=== PATIENT | female | born 1965 | race Caucasian/White ===

== ENCOUNTER 2020-04-21 22:23 | Emergency (ER) | payer BC ==
--- NOTE | 2020-04-21 23:08 | EDM.PDOC ---
ED HPI GENERAL MEDICAL PROBLEM - General Chief Complaint: Lower Extremity Injury/Pain Stated Complaint: RIGHT LEG IN PAIN,RED,SWOLLEN, HOT, SORE Time Seen by Provider: 04/21/20 23:00 Source of Information: Reports: Patient, RN History Limitations: Reports: No Limitations - History of Present Illness INITIAL COMMENTS - FREE TEXT/NARRATIVE: 54-year-old female presents to the ER with complaints of right leg pain. Patient reports she noticed a bump on her right cohen 2 days ago. She states that she thinks it originated from her shingles and pneumonia shots she had a week ago. she denies any known injury or fall or trauma to her right leg. States area is swollen, warm and painful to touch. Denies any fevers or chills, chest pain, palpitation, or any leg swelling. she has not done anything to relieve her symptoms. States she is in [place] for the weekend. Right Lower Leg Pain Score (Numeric/FACES): 6 - Related Data Allergies Allergy/AdvReac Type Severity Reaction Status Date / Time Unable to Assess Allergy Unverified 04/21/20 22:37 Past Medical History - Past Surgical History GI Surgical History: Reports: Hernia Repair/Other Female Surgical History: Reports: Section Social & Family History - Tobacco Use Smoking Status *Q: Current Every Day Smoker Years of Tobacco use: 39 Packs/Tins Daily: 1 Second Hand Smoke Exposure: Yes - Caffeine Use Caffeine Use: Reports: Coffee - Recreational Drug Use Recreational Drug Use: No Review of Systems - Review of Systems Review Of Systems: Comprehensive ROS is negative, except as noted in HPI. ED EXAM, GENERAL - Physical Exam Exam: See Below Exam Limited By: No Limitations General Appearance: Alert, No Apparent Distress Respiratory/Chest: No Respiratory Distress, Lungs Clear, Normal Breath Sounds, No Accessory Muscle Use, Chest Non-Tender Cardiovascular: Normal Peripheral Pulses, Regular Rate, Rhythm, No Edema, No Gallop, No JVD, No Murmur, No Rub Peripheral Pulses: 3+: Posterior Tibial (L), Posterior Tibial (R), Dorsalis Pedis (L), Dorsalis Pedis (R) Extremities: Normal Inspection, Normal Range of Motion, Non-Tender, No Pedal Henry ma, Normal Capillary Refill, Other (Mild swollen area with bruising adjacent to the medial malleolus, pain reported with light touch. no warm or drainage noted) Neurological: Alert, Oriented Psychiatric: Anxious Skin Exam: Warm Course - Vital Signs Last Recorded V/S: Last Vital Signs Temp 96.3 F L 04/21/20 22:32 Pulse 62 04/21/20 22:32 Resp 18 04/21/20 22:32 BP 137/98 H 04/21/20 22:32 Pulse Ox 97 04/21/20 22:32 - Re-Assessments/Exams Free Text/Narrative Re-Assessment/Exam: Reviewed exam and xray findings with patient. Encouraged to follow up with US if symptoms do not improved with her PCP. Tylenol/ibuprofen prn for discomfort. Patient reports her mother also has phleboliths in her legs. 04/22/20 00:29 04/22/20 00:38 Departure - Departure Time of Disposition: 00:29 Disposition: Home, Self-Care 01 Condition: Good Clinical Impression: Phlebolith - Discharge Information Forms: ED Department Discharge Additional Instructions: Take ibuprofen 600 mg every 8 hours as needed. Follow up with PCP in the clinic for an US. Patient verbalized understanding. Sepsis Event Note (ED) - Evaluation Sepsis Screening Result: No Definite Risk - Focused Exam Vital Signs: Vital Signs Temp Pulse Resp BP Pulse Ox 04/21/20 22:32 96.3 F L 62 18 137/98 H 97
--- NOTE | 2020-04-21 23:31 | CR ---
PROCEDURE INFORMATION: Exam: XR Right Tibia and Fibula Exam date and time: 04/21/2020 11:15 PM Age: 54 years old Clinical indication: Other: Pain; Additional info: Bruising to right cohen TECHNIQUE: Imaging protocol: XR Right tibia and fibula. Views: 2 views. COMPARISON: No relevant prior studies available. FINDINGS: Bones/joints: The tibia and fibula are intact. Ankle and knee joints appear to be in anatomic alignment. Postsurgical changes are noted in the region of the Lisfranc joint. No acute fracture is present. Soft tissues: There are radiopaque objects in the anterior soft tissues largest measures approximately 0.4 x 0.2 cm. Total of 9 separate structures are identified. Correlate for possible penetrating injury in this location. Foreign bodies are possible. Other etiologies include calcification from prior injury and phleboliths which are less likely. There does appear to be soft tissue swelling in the region. IMPRESSION: 1. Possible multiple foreign bodies in the soft tissues of the anterior lower leg. 2. No fracture present.
== END 2020-04-22 00:51 | disposition home or self-care (01) ==
LOC: DL.ED 22:23
DX: I87.8 Other specified disorders of veins (principal); F17.210 Nicotine dependence, cigarettes, uncomplicated; Z98.890 Other specified postprocedural states
CPT/HCPCS: 73590-RT; 99283-25